=== PATIENT | female | born 1990 | race Caucasian/White ===

== ENCOUNTER → 2017-08-07 09:08 | Outpatient (CLI) | payer OTHER, SELFPAY ==
[2017-08-07 13:00] LABS: Cholesterol 138 mg/dL (200); Glucose 91 mg/dL (74-106); High Density Lipoprotein 41 mg/dL; T4 Free Direct 0.95 ng/dL (0.76-1.46); Triglycerides 130 mg/dL; Very Low Density Lipoprotein 26 mg/dL (5-40)
[2017-08-08 09:39] LABS: Vitamin D,25 Hydroxy 22.4 ng/mL (29.95-100.01)
[2017-08-12 12:21] LABS: HPV Reflexed? NOT INDICATED
== END ==
PROVIDERS: Family Provider Family Medicine; PCP Family Medicine; Visit Provider Obstetrics & Gynecology
DX: E28.2 Polycystic ovarian syndrome (principal); E01.0 Iodine-deficiency related diffuse (endemic) goiter; Z12.4 Encounter for screening for malignant neoplasm of cervix
CPT/HCPCS: 36415; 80061; 82306; 82947; 84439; 88175; G0145

== ENCOUNTER → 2017-08-11 09:52 | Outpatient (CLI) | payer OTHER, SELFPAY ==
--- NOTE | 2017-08-11 09:54 | US_ITS ---
STUDY: THYROID ULTRASOUND REASON FOR EXAM: Female, 27 years old. Thyromegaly. TECHNIQUE: Ultrasound evaluation of the thyroid was performed with real-time and static duke-scale imaging. COMPARISON: Comparison is made with prior examination dated October 21, 2014. FINDINGS: RIGHT LOBE: The right lobe of the thyroid gland measures 4.9 cm x 1.8 cm x 1.9 cm. There is a homogeneous echotexture. There are no demonstrated solid, cystic or complex lesions. LEFT LOBE: The left lobe of the thyroid gland is slightly enlarged and measures 5.1 cm x 1.5 cm by 1.5 cm. There is a homogeneous echotexture. There are no demonstrated solid, cystic or complex lesions. ISTHMUS: The isthmus measures 3.0 mm. The regional lymph nodes are normal. US/Thyroid IMPRESSION: Mildly enlarged left lobe of the thyroid. Electronically Signed: Abhijeet Gauthier MD at 15:31 EDT Tel [phone], Service support ,
== END ==
PROVIDERS: Family Provider Family Medicine; PCP Family Medicine; Visit Provider Obstetrics & Gynecology
DX: E01.0 Iodine-deficiency related diffuse (endemic) goiter (principal)
CPT/HCPCS: 76536

== ENCOUNTER → 2018-09-07 | Outpatient (CLI) | payer OTHER, SELFPAY ==
[2018-09-07 15:18] VITALS: BMI 28.1
[2018-09-07 15:43] LABS: Absolute Lymphocyte Count 3.63 X10^3/ul (0.83-4.51); Absolute Neutrophil Count 4.6 X10^3/uL (2.0-7.7); Basophil# 0.02 X10^3/uL; Basophil% 0.2 % (0-1); Eosinophils% 2.2 % (0-5); Hematocrit 40.2 % (37-47); Hemoglobin 13.5 g/dl (12.0-15.0); Lymphocyte # 3.63 X10^3/ul (4.0); Mean Corp Hgb Conc 33.6 g/gl (32-36); Mean Corpuscular Hgb 28.3 pg (27.0-32.0); Mean Corpuscular Volume 84.3 fL (81-99); Mean Platelet Vol. 11.6 fl (6.2-12.0); Monocyte# 0.61 X10^3/uL; Monocyte% 6.7 % (0-10); Neutrophil # 4.61 X10^3/uL (2.7-7.7); Neutrophil % 50.8 % (47-70); POSITIVE COUNT NO; POSITIVE DIFFERENTIAL NO; POSITIVE MORPHOLOGY NO; Platelet Count 307 K/mm3 (150-450); RBC Distribution Width SD 39.7 fl (35.1-43.9); Red Blood Count 4.77 M/mm3 (4.2-5.4); White Blood Count 9.1 K/mm3 (4.4-11.0)
[2018-09-07 16:09] LABS: Thyroid Stim Hormone (TSH) 1.65 uIU/mL (0.358-3.74)
== END | disposition home or self-care (01) ==
PROVIDERS: Family Provider Family Medicine; PCP Family Medicine; Referring Provider Nurse Practitioner Women's Health; Visit Provider Nurse Practitioner Women's Health
DX: N92.1 Excessive and frequent menstruation with irregular cycle (principal); N94.6 Dysmenorrhea, unspecified
CPT/HCPCS: 36415; 84443; 85025

== ENCOUNTER → 2018-09-15 | Outpatient (CLI) | payer OTHER, SELFPAY ==
[2018-09-07 15:18] VITALS: BMI 28.1
--- NOTE | 2018-09-15 12:54 | US_ITS ---
STUDY: ULTRASOUND OF THE FEMALE PELVIS - COMPLETE REASON FOR EXAM: Female, 28 years old. Heavy bleeding LMP: 09/10/2018 TECHNIQUE: Transabdominal and Transvaginal TECHNICAL QUALITY: Adequate. COMPARISON: None. FINDINGS: The uterus is anteverted and is in a midline position. The uterus measures 9.4 x 6.1 x 2.5 cm. Normal uterine cervix. The endometrium measures 4.1 mm in thickness, and is hyperechoic. There is no demonstrated endometrial mass. There is no demonstrated myometrial mass. I.U.D. - The patient does not have an I.U.D. The right ovary is visualized. The right ovary measures 2.9 x 2.2 x 2.0 cm. There is no right ovarian cyst or ovarian mass. There is no visualized right adnexal mass or complex lesion. There is normal arterial and normal venous vascularity. The left ovary is visualized. The left ovary measures 2.7 x 2.2 x 1.8 cm. There is no left ovarian cyst or ovarian mass. There is no visualized left adnexal mass or complex lesion. There is normal arterial and normal venous vascularity. There is no fluid in the cul-de-sac. The bladder is sonographically normal US/Pelvic (Non ) IMPRESSION: No suspicious sonographic findings Electronically Signed: Cristofer Gomez MD at 16:08 EDT , Service support ,
--- NOTE | 2018-09-15 12:54 | US_ITS ---
STUDY: ULTRASOUND OF THE FEMALE PELVIS - COMPLETE REASON FOR EXAM: Female, 28 years old. Heavy bleeding LMP: 09/10/2018 TECHNIQUE: Transabdominal and Transvaginal TECHNICAL QUALITY: Adequate. COMPARISON: None. FINDINGS: The uterus is anteverted and is in a midline position. The uterus measures 9.4 x 6.1 x 2.5 cm. Normal uterine cervix. The endometrium measures 4.1 mm in thickness, and is hyperechoic. There is no demonstrated endometrial mass. There is no demonstrated myometrial mass. I.U.D. - The patient does not have an I.U.D. The right ovary is visualized. The right ovary measures 2.9 x 2.2 x 2.0 cm. There is no right ovarian cyst or ovarian mass. There is no visualized right adnexal mass or complex lesion. There is normal arterial and normal venous vascularity. The left ovary is visualized. The left ovary measures 2.7 x 2.2 x 1.8 cm. There is no left ovarian cyst or ovarian mass. There is no visualized left adnexal mass or complex lesion. There is normal arterial and normal venous vascularity. There is no fluid in the cul-de-sac. The bladder is sonographically normal US/Transvaginal Non- IMPRESSION: No suspicious sonographic findings Electronically Signed: Cristofer Gomez MD at 16:08 EDT , Service support ,
== END | disposition home or self-care (01) ==
PROVIDERS: Family Provider Family Medicine; PCP Family Medicine; Referring Provider Nurse Practitioner Women's Health; Visit Provider Nurse Practitioner Women's Health
DX: N92.1 Excessive and frequent menstruation with irregular cycle (principal); N94.6 Dysmenorrhea, unspecified
CPT/HCPCS: 76830; 76856; 93976

== ENCOUNTER → 2020-12-07 | Outpatient (CLI) | payer OTHER, SELFPAY ==
[2020-12-07 14:39] VITALS: BMI 29.5
[2020-12-12 05:07] LABS: Chlamydia By Nucleic Acid AMP Negative (Negative)
[2020-12-13 10:47] LABS: Gonococcus By Nucleic Acid AMP Negative (Negative)
[2020-12-13 20:32] LABS: HPV Reflexed? NOT INDICATED
== END | disposition home or self-care (01) ==
LOC: LABSPEC 16:39
PROVIDERS: PCP Family Medicine; Referring Provider Obstetrics & Gynecology; Visit Provider Obstetrics & Gynecology
DX: R30.0 Dysuria (principal); Z11.3 Encounter for screening for infections with a predominantly sexual mode of transmission; Z12.4 Encounter for screening for malignant neoplasm of cervix
CPT/HCPCS: 87086; 87491; 87591; 88175; G0145

== ENCOUNTER → 2020-12-18 12:32 | Outpatient (CLI) | payer OTHER, SELFPAY ==
[2020-12-07 14:39] VITALS: BMI 29.5
--- NOTE | 2020-12-18 12:34 | US_ITS ---
STUDY: ULTRASOUND OF THE FEMALE PELVIS - COMPLETE REASON FOR EXAM: Female, 30 years old. IUD PLACEMENT LMP: 11/14/2020. TECHNIQUE: Transabdominal and Transvaginal TECHNICAL QUALITY: Adequate. COMPARISON: Comparison is made with prior study dated 09/15/2018. FINDINGS: The uterus is anteverted and is tilted to the right side of the pelvis. The uterus measures 8.5 cm x 5.9 cm x 4.2 cm. Normal uterine cervix. The endometrium measures 7 mm in thickness, and is hyperechoic. There is no demonstrated endometrial mass. There is no demonstrated myometrial mass. I.U.D. - The patient does have an I.U.D.. The IUD is in the fundal portion of the endometrium. The right ovary is visualized. The right ovary measures 3 cm x 1.9 cm x 1.9 cm. There is no right ovarian cyst or ovarian mass. There is no visualized right adnexal mass or complex lesion. There is normal arterial and normal venous vascularity. The left ovary is visualized. The left ovary measures 3.4 cm x 2 signed by 3.5 cm. There is no left ovarian cyst or ovarian mass. There is no visualized left adnexal mass or complex lesion. There is normal arterial and normal venous vascularity. There is no fluid in the cul-de-sac. The pre void volume of the bladder was 396 ml. US/Pelvic (Non ) IMPRESSION: The IUD is within the fundal portion of the endometrium. Electronically Signed: Abhijeet Gauthier MD at 12:21 EDT , Service support ,
--- NOTE | 2020-12-18 12:34 | US_ITS ---
STUDY: ULTRASOUND OF THE FEMALE PELVIS - COMPLETE REASON FOR EXAM: Female, 30 years old. IUD PLACEMENT LMP: 11/14/2020. TECHNIQUE: Transabdominal and Transvaginal TECHNICAL QUALITY: Adequate. COMPARISON: Comparison is made with prior study dated 09/15/2018. FINDINGS: The uterus is anteverted and is tilted to the right side of the pelvis. The uterus measures 8.5 cm x 5.9 cm x 4.2 cm. Normal uterine cervix. The endometrium measures 7 mm in thickness, and is hyperechoic. There is no demonstrated endometrial mass. There is no demonstrated myometrial mass. I.U.D. - The patient does have an I.U.D.. The IUD is in the fundal portion of the endometrium. The right ovary is visualized. The right ovary measures 3 cm x 1.9 cm x 1.9 cm. There is no right ovarian cyst or ovarian mass. There is no visualized right adnexal mass or complex lesion. There is normal arterial and normal venous vascularity. The left ovary is visualized. The left ovary measures 3.4 cm x 2 signed by 3.5 cm. There is no left ovarian cyst or ovarian mass. There is no visualized left adnexal mass or complex lesion. There is normal arterial and normal venous vascularity. There is no fluid in the cul-de-sac. The pre void volume of the bladder was 396 ml. US/Transvaginal Non- IMPRESSION: The IUD is within the fundal portion of the endometrium. Electronically Signed: Abhijeet Gauthier MD at 12:21 EDT , Service support ,
== END ==
PROVIDERS: PCP Family Medicine; Referring Provider Obstetrics & Gynecology; Visit Provider Obstetrics & Gynecology
DX: Z30.431 Encounter for routine checking of intrauterine contraceptive device (principal)
CPT/HCPCS: 76830; 76856; 93976

== ENCOUNTER → 2022-11-06 | Outpatient (CLI) | payer OTHER, SELFPAY ==
[2022-11-06 12:45] LABS: Absolute Lymphocyte Count 2.51 X10^3/uL (0.83-4.51); Absolute Neutrophil Count 2.6 X10^3/uL (2.0-7.7); Basophil# 0.03 X10^3/uL; Basophil% 0.5 % (0-1); Eosinophil# 0.13 X10^3/uL; Eosinophils% 2.3 % (0-5); Hematocrit 39.7 % (37-47); Lymphocyte # 2.51 X10^3/ul (0.83-4.51); Lymphocyte % 44.4 % (19-41); Mean Corp Hgb Conc 32.7 g/dL (32-36); Mean Corpuscular Hgb 28.7 pg (27.0-32.0); Mean Corpuscular Volume 87.6 fL (81-99); Mean Platelet Vol. 11.6 fl (6.2-12.0); Monocyte# 0.39 X10^3/uL; Monocyte% 6.9 % (0-10); NRBC Flagged by Analyzer 0 % (0-5); Neutrophil # 2.57 X10^3/uL (2.7-7.7); Neutrophil % 45.5 % (47-70); Platelet Count 354 K/mm3 (150-450); RBC Distribution Width CV 12.4 % (11.6-14.6); RBC Distribution Width SD 39.6 fl (35.1-43.9); Red Blood Count 4.53 M/mm3 (4.2-5.4); White Blood Count 5.7 K/mm3 (4.4-11.0)
[2022-11-06 12:57] LABS: Vitamin B12 445 pg/mL (211-911); Vitamin D,25 Hydroxy 38.8 ng/mL
[2022-11-06 13:03] LABS: AST(SGOT) 18 U/L (15-37); Alanine Aminotransfer ALT/SGPT 56 U/L (13-56); Albumin, Serum 3.5 g/dL (3.2-5.0); Alkaline Phosphatase 68 U/L (45-117); Anion Gap 5 (5-15); BUN 12 mg/dL (7-18); BUN/Creat Ratio 15.1 RATIO (10-20); Calcium,Total 8.4 mg/dL (8.5-10.1); Chloride 108 mmol/L (98-107); Creatinine, Serum 0.79 mg/dL (0.55-1.02); EST Glomerular Filtration Rate 89 mL/min (>60); Est Glom Filt Rate - Afr Amer 108 mL/min (>60); Ferritin 67 ng/mL (8-252); Globulin 3.6 g/dL (2.2-4.2); Glucose 123 mg/dL (74-106); Iron 56 ug/dL (50-170); Potassium 3.7 mmol/L (3.5-5.1); Protein, Total 7.1 g/dL (6.4-8.2); Sodium Level 138 mmol/L (136-145); T4 Free Direct 1.16 ng/dL (0.76-1.46); Thyroid Stim Hormone (TSH) 0.87 uIU/mL (0.358-3.74)
== END | disposition home or self-care (01) ==
LOC: BFHLAB 09:49
PROVIDERS: PCP Nurse Practitioner Family; Referring Provider Nurse Practitioner Family; Visit Provider Nurse Practitioner Family
DX: Z00.00 Encounter for general adult medical examination without abnormal findings (principal); R53.83 Other fatigue
CPT/HCPCS: 36415; 80053; 82306; 82607; 82728; 83540; 84439; 84443; 85025

== ENCOUNTER → 2022-12-25 | Outpatient (CLI) | payer OTHER, SELFPAY ==
[2022-12-25 10:34] LABS: hCG Titer Quant., Serum 5 mIU/mL (1-3)
== END | disposition home or self-care (01) ==
PROVIDERS: PCP Nurse Practitioner Family; Referring Provider Nurse Practitioner Women's Health; Visit Provider Nurse Practitioner Women's Health
DX: N91.2 Amenorrhea, unspecified (principal)
CPT/HCPCS: 36415; 84702

== ENCOUNTER → 2022-12-27 | Outpatient (CLI) | payer OTHER, SELFPAY ==
[2022-12-27 10:07] LABS: hCG Titer Quant., Serum 1 mIU/mL (1-3)
== END | disposition home or self-care (01) ==
LOC: PAVLAB 09:23
PROVIDERS: PCP Family Medicine; Referring Provider Nurse Practitioner Women's Health; Visit Provider Nurse Practitioner Women's Health
DX: N91.2 Amenorrhea, unspecified (principal)
CPT/HCPCS: 36415; 84702

== ENCOUNTER → 2023-02-25 | Outpatient (CLI) | payer OTHER, SELFPAY ==
[2023-02-27 21:07] LABS: Chlamydia By Nucleic Acid AMP Negative (Negative); Gonococcus By Nucleic Acid AMP Negative (Negative)
== END | disposition home or self-care (01) ==
LOC: LABSPEC 16:19
PROVIDERS: PCP Family Medicine; Referring Provider Obstetrics & Gynecology; Visit Provider Obstetrics & Gynecology
DX: O09.90 Supervision of high risk pregnancy, unspecified, unspecified trimester (principal); Z3A.00 Weeks of gestation of pregnancy not specified
CPT/HCPCS: 87086; 87088; 87491; 87591

== ENCOUNTER → 2023-03-10 | Outpatient (CLI) | payer OTHER, SELFPAY ==
[2023-03-10 09:09] LABS: Absolute Lymphocyte Count 2.39 X10^3/uL (0.83-4.51); Absolute Neutrophil Count 5.4 X10^3/uL (2.0-7.7); Basophil# 0.02 X10^3/uL; Basophil% 0.2 % (0-1); Eosinophil# 0.11 X10^3/uL; Eosinophils% 1.3 % (0-5); Hematocrit 37.1 % (37-47); Lymphocyte # 2.39 X10^3/ul (0.83-4.51); Lymphocyte % 28.7 % (19-41); Mean Corp Hgb Conc 32.3 g/dL (32-36); Mean Corpuscular Hgb 28.3 pg (27.0-32.0); Mean Corpuscular Volume 87.5 fL (81-99); Mean Platelet Vol. 11.7 fl (6.2-12.0); Monocyte% 4.8 % (0-10); NRBC Flagged by Analyzer 0 % (0-5); Neutrophil # 5.38 X10^3/uL (2.7-7.7); Neutrophil % 64.5 % (47-70); Platelet Count 249 K/mm3 (150-450); RBC Distribution Width CV 12.8 % (11.6-14.6); RBC Distribution Width SD 40.3 fl (35.1-43.9); Red Blood Count 4.24 M/mm3 (4.2-5.4); White Blood Count 8.3 K/mm3 (4.4-11.0)
[2023-03-10 09:34] LABS: Thyroid Stim Hormone (TSH) 0.78 uIU/mL (0.358-3.74)
[2023-03-10 10:04] LABS: NATERA MAILED SPECIMEN
[2023-03-10 10:34] LABS: HIV - WCH Non-Reactive (Nonreactive); Hepatitis B Surface Antigen Non-Reactive (Nonreactive); Hepatitis C Antibody Non-Reactive (Nonreactive); Rubella IgG Reactive (Nonreactive); Syphilis Antibodies Non-reactive
[2023-03-11 04:07] LABS: Thyroid Peroxidase AB 15 IU/mL (0-34)
== END | disposition home or self-care (01) ==
PROVIDERS: PCP Family Medicine; Referring Provider Obstetrics & Gynecology; Visit Provider Obstetrics & Gynecology
DX: O99.210 Obesity complicating pregnancy, unspecified trimester (principal); E01.0 Iodine-deficiency related diffuse (endemic) goiter; Z3A.00 Weeks of gestation of pregnancy not specified; O99.280 Endocrine, nutritional and metabolic diseases complicating pregnancy, unspecified trimester
CPT/HCPCS: 36415; 83036; 84439; 84443; 85025; 86376; 86703; 86762; 86780; 86803; 86850; 86900; 86901; 87340

== ENCOUNTER → 2023-07-10 | Outpatient (CLI) | payer OTHER, SELFPAY ==
[2023-07-10 13:55] LABS: Absolute Lymphocyte Count 2.34 X10^3/uL (0.83-4.51); Absolute Neutrophil Count 8.5 X10^3/uL (2.0-7.7); Basophil# 0.04 X10^3/uL; Basophil% 0.3 % (0-1); Eosinophil# 0.09 X10^3/uL; Eosinophils% 0.8 % (0-5); Hematocrit 30.1 % (37-47); Hemoglobin 9.7 g/dL (12.0-15.0); Lymphocyte # 2.34 X10^3/ul (0.83-4.51); Lymphocyte % 19.8 % (19-41); Mean Corp Hgb Conc 32.2 g/dL (32-36); Mean Corpuscular Hgb 28.4 pg (27.0-32.0); Mean Corpuscular Volume 88.3 fL (81-99); Mean Platelet Vol. 11.7 fl (6.2-12.0); Monocyte# 0.75 X10^3/uL; Monocyte% 6.4 % (0-10); NRBC Flagged by Analyzer 0 % (0-5); Neutrophil # 8.49 X10^3/uL (2.7-7.7); Neutrophil % 71.9 % (47-70); Platelet Count 228 K/mm3 (150-450); RBC Distribution Width CV 13.8 % (11.6-14.6); RBC Distribution Width SD 44.1 fl (35.1-43.9); Red Blood Count 3.41 M/mm3 (4.2-5.4); White Blood Count 11.8 K/mm3 (4.4-11.0)
[2023-07-10 14:04] LABS: Glucose Challenge Gest 1H 50g 117 mg/dL (70-140)
[2023-07-10 14:35] LABS: HIV - WCH Non-Reactive (Nonreactive); Syphilis Antibodies Non-reactive
[2023-07-10 15:04] LABS: Amphetamine Urine VISTA NEGATIVE (<1000 ng/mL); Barbiturate Urine VISTA NEGATIVE (< 200 ng/mL); Benzodiazepine Urine VISTA NEGATIVE (< 200 ng/mL); Cocaine Urine VISTA NEGATIVE (< 300 ng/mL); Ecstacy Urine VISTA NEGATIVE (< 500 ng/mL); Methadone Urine VISTA NEGATIVE (< 300 ng/mL); PCP Urine VISTA NEGATIVE (< 25 ng/mL); THC Urine VISTA NEGATIVE (< 50 ng/mL); Vista UDS pH Range 7
--- OUTSIDE RECORDS SUMMARY | 2023-07-10 21:04 | XMS RPT_ITS | CCD ---
Author Name Unknown Address [facility] [employer] [address] [place] [id number] Organization [facility] Care Team Providers Care Wheel Worker Name Role Phone RAMONA MELÉNDEZSho Berkowitz Primary Care Unavailable YAMINI BARNETT Attending Unavaila RACHEAL Goldberg Referring Unavailab ISRRAEL Casiano Primary Care Unavailable SONALI JUSTIN Attending Unavailable Allergies Allergy Classification Reported Allergen(s) Allergy Type Date of Onset Reaction(s) Facility (1 source) Escitalopram; Translations: [ESCITALOPRAM] Drug Allergy 12-26-2022 [facility] Other [facility] [place] [facility] Problems Problem Classification Problem Date Documented Da te Episodic/Chronic Other female genital disorders (1 source) Abnormal uterine and vaginal bleeding, unspecified; Translations: [Vaginal bleeding] Onset: 12-26-2022 Chronic Results Test Name Value Interpretation Reference Range Facil ity Encounters Encounter Date Encounter Type Care Provider Facility Start: 05-13-2023 End: 05-13-2023 ambulatory RACHEAL DOMINGUEZ [facility] Start: 12-26-2022 End: 12-26-2022 Emergency department patient visit ISRRAEL MELÉNDEZ Facility:[facility] Payers Date Payer Category Payer Unknown [id number] 1990 Unknown [id number] Summary Purpose Family History No Family History Records FoundNo Family History Records Found Advance Directives No Advanced Directives Records FoundNo Advanced Directives Records Found Additional Source Comments INFORMATION SOURCE (unrecogn ized section and content) DATE CREATED AUTHOR AUTHOR'S ORGANIZ ATION 05/14/2023 [facility] FOR RECORDS PERTAINING TO PATIENTS WHO ARE OR HAVE BEEN ENROLLED IN A CHEMICAL DEPENDENCY/SUBSTANCEABUSE PROGRAM, SOME INFORMATION MAY BE OMITTED. This clinical summary was aggregated from multiple sources. Caution should be exercised in using it in the provision of clinical care. This summary normalizes information from multiple sources, and as a consequence, information in this document may materially change the coding, format and clinical context of patient data. In addition, data may be omitted in some cases. CLINICAL DECISIONS SHOULD BE BASED ON THE PRIMARY CLINICAL RECORDS. [facility] [employer], [facility]. provides no warranty or guarantee of the accuracy or completeness of information in this document.
== END | disposition home or self-care (01) ==
LOC: PAVLAB 13:26
PROVIDERS: PCP Family Medicine; Referring Provider Obstetrics & Gynecology; Visit Provider Obstetrics & Gynecology
DX: O09.90 Supervision of high risk pregnancy, unspecified, unspecified trimester (principal); Z13.1 Encounter for screening for diabetes mellitus; Z3A.00 Weeks of gestation of pregnancy not specified
CPT/HCPCS: 36415; 80307; 82950; 85025; 86703; 86780

== ENCOUNTER → 2023-08-07 | Outpatient (CLI) | payer OTHER, SELFPAY ==
[2023-08-07 09:56] LABS: Absolute Lymphocyte Count 2.01 X10^3/uL (0.83-4.51); Absolute Neutrophil Count 8.2 X10^3/uL (2.0-7.7); Basophil# 0.05 X10^3/uL; Basophil% 0.4 % (0-1); Eosinophil# 0.13 X10^3/uL; Eosinophils% 1.2 % (0-5); Hematocrit 31.4 % (37-47); Lymphocyte # 2.01 X10^3/ul (0.83-4.51); Mean Corp Hgb Conc 31.8 g/dL (32-36); Mean Corpuscular Hgb 28.4 pg (27.0-32.0); Mean Corpuscular Volume 89.2 fL (81-99); Mean Platelet Vol. 11.7 fl (6.2-12.0); Monocyte# 0.69 X10^3/uL; Monocyte% 6.2 % (0-10); NRBC Flagged by Analyzer 0 % (0-5); Neutrophil # 8.22 X10^3/uL (2.7-7.7); Neutrophil % 73.5 % (47-70); Platelet Count 214 K/mm3 (150-450); RBC Distribution Width CV 13.8 % (11.6-14.6); Red Blood Count 3.52 M/mm3 (4.2-5.4); White Blood Count 11.2 K/mm3 (4.4-11.0)
[2023-08-07 10:25] LABS: Vitamin B12 354 pg/mL (211-911)
[2023-08-07 11:06] LABS: Ferritin 4 ng/mL (8-252); Iron Binding Capacity,Total 526 ug/dL (250-450)
== END | disposition home or self-care (01) ==
PROVIDERS: PCP Family Medicine; Referring Provider Nurse Practitioner Family; Visit Provider Nurse Practitioner Family
DX: D64.9 Anemia, unspecified (principal)
CPT/HCPCS: 36415; 82607; 82728; 82746; 83550; 85025

== ENCOUNTER → 2023-09-02 | Outpatient (CLI) | payer OTHER, SELFPAY ==
[2023-09-02 13:25] LABS: Absolute Lymphocyte Count 1.98 X10^3/uL (0.83-4.51); Absolute Neutrophil Count 6.9 X10^3/uL (2.0-7.7); Basophil# 0.03 X10^3/uL; Basophil% 0.3 % (0-1); Eosinophil# 0.07 X10^3/uL; Eosinophils% 0.7 % (0-5); Hematocrit 29.8 % (37-47); Hemoglobin 9.7 g/dL (12.0-15.0); Lymphocyte # 1.98 X10^3/ul (0.83-4.51); Lymphocyte % 20.2 % (19-41); Mean Corp Hgb Conc 32.6 g/dL (32-36); Mean Corpuscular Hgb 28.8 pg (27.0-32.0); Mean Corpuscular Volume 88.4 fL (81-99); Mean Platelet Vol. 12.5 fl (6.2-12.0); Monocyte# 0.78 X10^3/uL; Monocyte% 7.9 % (0-10); NRBC Flagged by Analyzer 0 % (0-5); Neutrophil # 6.89 X10^3/uL (2.7-7.7); Neutrophil % 70.2 % (47-70); Platelet Count 217 K/mm3 (150-450); RBC Distribution Width CV 13.7 % (11.6-14.6); RBC Distribution Width SD 44.1 fl (35.1-43.9); Red Blood Count 3.37 M/mm3 (4.2-5.4); White Blood Count 9.8 K/mm3 (4.4-11.0)
[2023-09-02 13:43] LABS: Protein, Urine (Random) 6.7 mg/dL (<11.9); Protein:Creat Ratio 191 mg/g CRE (0-200)
[2023-09-02 13:57] LABS: ALB/GLOB Ratio 0.7 RATIO (0.9-2.4); AST(SGOT) 14 U/L (15-37); Alanine Aminotransfer ALT/SGPT 17 U/L (13-56); Albumin, Serum 2.6 g/dL (3.2-5.0); Alkaline Phosphatase 122 U/L (45-117); Anion Gap 5 (5-15); BUN 8 mg/dL (7-18); BUN/Creat Ratio 14.6 RATIO (10-20); Chloride 107 mmol/L (98-107); Creatinine, Serum 0.55 mg/dL (0.55-1.02); EST Glomerular Filtration Rate 137 mL/min (>60); Est Glom Filt Rate - Afr Amer 165 mL/min (>60); Globulin 3.8 g/dL (2.2-4.2); Glucose 66 mg/dL (74-106); Protein, Total 6.4 g/dL (6.4-8.2); Sodium Level 136 mmol/L (136-145)
[2023-09-02 14:32] LABS: Protein, Urine (Random) 10.8 mg/dL (<11.9); Protein:Creat Ratio 167 mg/g CRE (0-200)
== END | disposition home or self-care (01) ==
PROVIDERS: PCP Family Medicine; Referring Provider Obstetrics & Gynecology; Visit Provider Obstetrics & Gynecology
DX: R51.9 Headache, unspecified (principal)
CPT/HCPCS: 36415; 80053; 82570; 84156; 85025

== ENCOUNTER → 2023-09-08 | Outpatient (CLI) | payer OTHER, SELFPAY ==
[2023-09-08 12:33] LABS: Group B Strep DNA By PCR Negative (Negative); Internal Control PASS; Probe Check PASS; Specimen Processing Control PASS
== END | disposition home or self-care (01) ==
LOC: LABSPEC 10:49
PROVIDERS: PCP Family Medicine; Referring Provider Advanced Practice Midwife; Visit Provider Advanced Practice Midwife
DX: Z34.90 Encounter for supervision of normal pregnancy, unspecified, unspecified trimester (principal)
CPT/HCPCS: 87081; 87653

== ENCOUNTER → 2023-09-08 | Outpatient (CLI) | payer OTHER, SELFPAY ==
[2023-09-08 11:12] LABS: Ferritin 8 ng/mL (8-252); Iron 212 ug/dL (50-170); Iron Binding Capacity,Total 574 ug/dL (250-450); PERCENT IRON SATURATION 36.9 % (15.0-55.0)
== END | disposition home or self-care (01) ==
LOC: PAVLAB 09:10
PROVIDERS: PCP Family Medicine; Referring Provider Nurse Practitioner Women's Health; Visit Provider Nurse Practitioner Women's Health
DX: O99.019 Anemia complicating pregnancy, unspecified trimester (principal); Z3A.00 Weeks of gestation of pregnancy not specified
CPT/HCPCS: 36415; 82728; 83540; 83550

== ENCOUNTER 2023-09-15 17:49 | Inpatient (IN) | payer OTHER, SELFPAY ==
[2023-09-15] VITALS (28 sets, daily range): BP systolic 90–135; BP diastolic 53–90; PULSE 82–126; RESP 16–18; TEMP 36.6; O2SAT 78–100; BMI 35.9
[2023-09-15 09:55] LABS: ROM Internal Control Test YES-OK TO RESULT pt. (Internal QC); ROM Patient Test Negative (Negative); Record Kit Lot#, ROM+ K1866
--- NOTE | 2023-09-15 18:04 | HP.PCM.OB_ITS ---
HPI - General General Date of Admission: 09/15/23 HPI Narrative ROBERT STUART, is a 33 F who presents IAL now 5 cm regular ctx some vb no lof good fm Maternal Data Information BRAD Calculator Estimated Delivery Date Method Current WG Current Estimate 10/01/23 LMP (Certain) 37w 5d Other Estimates 09/30/23 Ultrasound #1 37w 6d PFSH PFSH Medical History Anxiety IBS (irritable bowel syndrome) PCOS (polycystic ovarian syndrome) Home Medications ?Medication ?Instructions ?Recorded ?Last Taken ?Type multivit-min no.71-iron fum 28 cap PO 02/11/23 Unknown History mg-folate no.1 1 mg-dha 300 mg capsule (PNV-[place]) ondansetron HCl 4 mg tablet 4 mg PO Q8H 30 days #60 tabs 02/25/23 Unknown Rx famotidine 20 mg tablet (Pepcid) 20 mg PO DAILY #30 tabs 08/07/23 Unknown Rx Allergy/AdvReac Type Severity Reaction Status Date / Time escitalopram (From Lexapro) Allergy Intermediate numbness/tingling Verified 09/08/23 09:45 in hands Family History Mother Hypertension Father Hypertension Sister Hypertension Ovarian cancer Surgical History H/O laparoscopy S/P appendectomy S/P right knee surgery [place] teeth extracted Social History adopted: No household members: spouse and children number of children: 2 current occupational status: employed current occupation: [employer]- [employer] current occupational exposures/hazards: No pets and animals: Yes (Not managing litterbox) pets and animals: cat(s) and dog(s) history of recent travel: No sexually active: Yes Smoking Status: Former smoker alcohol intake: never substance use type: does not use well-balanced diet: daily or most days caffeine: Yes Type: tea Number of servings: 1 eating out: rarely or never during the past year weight has: remained stable what type of physical activity do you participate in: walking frequency: 5-6 times per week steve/mormonism: None seatbelt use: always do you feel safe at home: Yes additional social history: [employer] Patient works at [employer] @ [employer] History 3 Elective abortions Hx Para 2 Spontaneous abortions Hx # Term Pregnancies Ectopic pregnancies Hx # Pregnancies Multiple births # of living children 2 Past Pregnancies Del. Date Name GA/Weeks Outcome Route Bth Weight Infant Gen Labor Lgth Anesthesia Del Locatn Provider FO 04/22/12 [facility] live - full term [facility] 10/11/15 [facility] live - full term [facility] Dr[facility] Durán Visit Details Expected Delivery Route/Plan Labor Preferences- CB/BF classes: [] labor support person: [] labor intervention preferences: [] pain management options preferred: [] cut cord/dad catch: [] : [] PP control planned: [] discussed possible routes of delivery and associated risks: [] special requests: [] Plans Covid status: [] Flu vaccine: given Tdap vaccine: declined Rhogam: [na LARC form signed: declined movement and labor precautions reviewed. Problem list reviewed and updated with the most current plan of care details and appropriate orders placed. Relevant counseling for the gestational age provided. Continue routine care and follow up unless otherwise noted in visit notes/problem list details OB Flowsheet Initial Weight: Not Recorded Date -?-?-?-?-?-?-?-?-?-?-?-?- EGA Weight BP Urine Prot -?-?-?-?-?-?-?-?-?-?-?-?- Glucose FHR FuHt Pres Dilation -?-?-?-?-?-?-?-?-?-?-?-?- Effaced St Visit Note 02/25/23 -?-?-?-?-?-?-?-?-?-?-?-?- 8w 6d 195 lb 117/79 -?-?-?-?-?-?-?-?-?-?-?-?- 189 -?-?-?-?-?-?-?-?-?-?-?-?- JV- CRL consiste nt with LMP. desires nipt. unsure about carrier testing. 03/26/23 -?-?-?-?-?-?-?-?-?-?-?-?- 13w 0d 198 lb 108/69 Negative -?-?-?-?-?-?-?-?-?-?-?-?- Negative 154 -?-?-?-?-?-?-?-?-?-?-?-?- JV- normal NIPT, anatomy scan ordered. no lof, vaginal bleeding, or cramping. 04/22/23 -?-?-?-?-?-?-?-?-?-?-?-?- 16w 6d 196 lb 111/71 Negative -?-?-?-?-?-?-?-?-?-?-?-?- Negative 148 -?-?-?-?-?-?-?-?-?-?-?-?- MH-No VB. Nausea improving. Denies concerns 05/20/23 -?-?-?-?-?-?-?-?-?-?-?-?- 20w 6d 204 lb 119/79 Negative -?-?-?-?-?-?-?-?-?-?-?-?- Negative 145 20 -?-?-?-?-?-?-?-?-?-?-?-?- KW- no vb/ctx. g ood fm. having increased vaginal pressure. closed on exam 06/19/23 -?-?-?-?-?-?-?-?--?-?-?-?- 25w 1d 208 lb 106/75 Negative -?-?-?-?-?-?-?-?-?-?-?-?- Negative 140 25 -?-?-?-?-?-?-?-?-?-?-?-?- Sm- no vb lof go od fm no regular ctx 07/10/23 -?-?-?-?-?-?-?-?-?-?-?-?- 28w 1d 215 lb 8 oz 112/77 -?-?-?-?-?-?-?-?-?-?-?-?- 145 28 -?-?-?-?-?-?-?-?-?-?-?-?- kw-no vb/lof/ctx . good fm. 28 week labs today pending. to start PO iron. kw-no vb/lof/ctx. good fm. 2 8 week labs today. passed 1 hour gct. to start PO iron. 07/24/23 -?-?-?-?-?-?-?-?--?-?-?-?- 30w 1d 220 lb 8 oz 112/72 Nega tive -?-?-?-?-?-?-?-?-?-?-?-?- Negative 140 30 Cephalic -?-?-?-?-?-?-?-?-?-?-?-?- Sm- no vb lof go od fm no regular ctx 08/07/23 -?-?-?-?-?-?-?-?-?-?-?-?- 32w 1d 220 lb 111/78 Negative -?-?-?-?-?-?-?-?-?-?-?-?- Negative 140 33 Cephalic -?-?-?-?-?-?-?-?-?-?-?-?- Sm- no vb lof go od fm no regularctx start pepcid for nausea and gerd 08/21/23 -?-?-?-?-?-?-?-?-?-?-?-?- 34w 1d 225 lb 111/74 Negative -?-?-?-?-?-?-?-?-?-?-?-?- Negative 145 35 Cephalic -?-?-?-?-?-?-?-?-?-?-?-?- JV- no lof, vagi nal bleeding, or dec fm. plan gbs next visit. 09/02/23 -?-?-?-?-?-?-?-?-?-?-?-?- 35w 6d 224 lb 4 oz 117/71 Nega tive -?-?-?-?-?-?-?-?-?-?-?-?- Negative 140 35 Cephalic -?-?-?-?-?-?-?-?-?-?-?-?- JV- has a headac he today and states some visual changes. bp is normal. sending for [facility] lab work up. 09/08/23 -?-?-?-?-?-?-?-?-?-?-?-?- 36w 5d 226 lb 6 oz 117/80 Nega tive -?-?-?-?-?-?-?-?-?-?-?-?- Negative 145 37 Cephalic 2 .5 -?-?-?-?-?-?-?-?-?-?-?-?- 70 -2 Kw- no vb/ lof/ctx. good fm. labs today NST FHR Rate Baby A Baseline: 140 Variability:: Moderate Accelerations:: 15 x 15 Decelerations:: None NST Reactive:: Yes FHR Category:: Category I Uterine Activity:: q3-5 ROS Constitutional Constitutional: Reports systems reviewed and no addt'l complaints, except as documented ENT HEENT: Reports systems reviewed and no addt'l complaints, except as documented Cardiovascular Cardiovascular: Reports systems reviewed and no addt'l complaints, except as documented Respiratory/Chest Respiratory/Chest: Reports systems reviewed and no addt'l complaints, except as documented Gastrointestinal Gastrointestinal: Reports systems reviewed and no addt'l complaints, except as documented and nausea; Denies abdominal pain Genitourinary Genitourinary: Reports systems reviewed and no addt'l complaints, except as documented, contractions Details: present and frequency (regular ) and movement Details: present Musculoskeletal Musculoskeletal: Reports systems reviewed and no addt'l complaints, except as documented Integumentary Integumentary: Reports as per HPI Neurologic Neurologic: Reports systems reviewed and no addt'l complaints, except as documented Endocrine Endocrinology: Reports systems reviewed and no addt'l complaints, except as documented Vital Signs Vital Signs Vital Signs: 09/15/23 09:17 09/15/23 09:17 Pulse Rate 91 Blood Pressure 119/90 H BP Systolic 119 BP Diastolic 90 Weight Weight: 229 lb Body Mass Index (BMI) 35.9 Physical Exam Const alert, oriented x3 and healthy appearing Constitutional Narrative: uncomfortable with contractions HEENT normocephalic and moist oral mucous membranes Head and Scalp: atraumatic Neck full ROM, no lymphadenopathy, supple and thyroid normal General: trachea midline Thyroid: thyroid normal Lymph Lymphatic: no lymphadenopathy noted Chest inspection of chest normal Resp normal respiratory effort Cardio regular rate GI normal to inspection, nondistended, normoactive bowel sounds, soft to palpation and non-tender Inspection: gravid external exam normal Bimanual Exam - Vag & Uterus: uterus non-tender Manual OB Exam: estimated gestational size appropriate, presentation cephalic, dilated, effaced and station Extremity normal to inspection General Extremity: Negative for edema Skin no rashes or lesions noted Neuro deep tendon reflexes 2+ bilaterally Motor Exam: strength 5/5 throughout and clonus absent Psych mental status grossly normal Labs Labs Labs: Blood Type AB POSITIVE Antibody Screen NEGATIVE Hct 29.8 % (37-47) L Hgb 9.7 g/dL (12.0-15.0) L Syphilis Total Ab Non-reactive VZV IgG Antibody 1.13 index (.-) Rubella IgG Antibody Reactive (Nonreactive) Hep Bs Antigen Non-Reactive (Nonreactive) Hepatitis C Antibody Non-Reactive (Nonreactive) Chlamydia DNA (NIC) Negative (Negative) N.gonorrhoeae DNA (NIC) Negative (Negative) HIV 1&2 Antibody Non-Reactive (Nonreactive) Glucose 1 Hr 50 gm 117 mg/dL (70-140) Gest Glucose Tolerance MG/DL Group B Strep DNA Negative (Negative) Rhogam given: No Miscellaneous Test Assessment & Plan (1) Anemia: COMMENT: OTC FE daily, recheck Fe studies in 4 weeks (2) Obesity affecting : QUALIFIERS: Trimester: second trimester Obesity type affecting : unspecified obesity Qualified Code(s): O99.212 - Obesity complicating , second trimester COMMENT: HgbA1c at NOB (3) Depression: QUALIFIERS: Depression Type: unspecified Qualified Code(s): F32.A - Depression, unspecified (4) Supervision of high risk , antepartum: COMMENT: PRR , BRAD 10/01/23,girl, PC Elaine Ryder, Balta (5) : QUALIFIERS: Weeks of gestation: 36 weeks Qualified Code(s): Z3A.36 - 36 weeks gestation of COMMENT: GBS neg, nl anatomy, NIPT low risk, discussed carrier testing, nl GCT (6) Family history of ovarian cancer: COMMENT: sister incidental finding. had urgent hysterectomy oophorectomy. (7) Active labor at term: PLAN: Plan admit IAL exp management
[2023-09-15 19:21] LABS: Absolute Lymphocyte Count 2.37 X10^3/uL (0.83-4.51); Absolute Neutrophil Count 9.1 X10^3/uL (2.0-7.7); Basophil# 0.02 X10^3/uL; Basophil% 0.2 % (0-1); Eosinophil# 0.05 X10^3/uL; Eosinophils% 0.4 % (0-5); Hematocrit 32.5 % (37-47); Hemoglobin 10.3 g/dL (12.0-15.0); Lymphocyte # 2.37 X10^3/ul (0.83-4.51); Lymphocyte % 19.3 % (19-41); Mean Corp Hgb Conc 31.7 g/dL (32-36); Mean Corpuscular Hgb 28.6 pg (27.0-32.0); Mean Corpuscular Volume 90.3 fL (81-99); Monocyte# 0.63 X10^3/uL; Monocyte% 5.1 % (0-10); NRBC Flagged by Analyzer 0 % (0-5); Neutrophil # 9.14 X10^3/uL (2.7-7.7); Neutrophil % 74.3 % (47-70); Platelet Count 211 K/mm3 (150-450); RBC Distribution Width CV 14.8 % (11.6-14.6); RBC Distribution Width SD 47.8 fl (35.1-43.9); White Blood Count 12.3 K/mm3 (4.4-11.0)
[2023-09-15] MEDS: Lactated Ringers 1,000 ML 50 ML IV (19:57)
[2023-09-15 20:07] LABS: Syphilis Antibodies Non-reactive
[2023-09-15] MEDS: LACTATED RINGERS 500 ML 999 ML IV ×2 (20:25→21:38)
[2023-09-15] MEDS: Acetaminophen 500 MG Tablet PO (21:04)
[2023-09-15] MEDS: fentaNYL-bupivacaine (epidural) 100 ML BAG EPIDURAL (21:32)
[2023-09-15] MEDS: Ondansetron 4 MG/2 ML Vial IV (21:42)
[2023-09-15] MEDS: 0.9% Saline Lock 10 ML Syringe IV (21:44)
[2023-09-16] VITALS (29 sets, daily range): BP systolic 93–122; BP diastolic 51–75; PULSE 76–113; RESP 16–18; TEMP 36.2–38; O2SAT 97–100
[2023-09-16] MEDS: 0.9% Saline Lock 10 ML Syringe IV ×2 (00:38→03:25)
[2023-09-16] MEDS: LACTATED RINGERS 500 ML 999 ML IV ×2 (00:56→03:51)
[2023-09-16] MEDS: Oxytocin 15 Units/NS 250ml 15 UNITS/250 ML IV.SOLN 2 UNITS IV (01:01)
[2023-09-16] MEDS: fentaNYL-bupivacaine (epidural) 100 ML BAG EPIDURAL (02:08)
[2023-09-16] MEDS: Lactated Ringers 1,000 ML 200 ML IV (02:48)
[2023-09-16] MEDS: Ondansetron 4 MG/2 ML Vial IV (03:25)
[2023-09-16] MEDS: Mag Hydrox/Al Hydrox/Simeth 30 ML UDC PO (04:57)
[2023-09-16] MEDS: Oxytocin 15 Units/NS 250ml 15 UNITS/250 ML IV.SOLN 83 UNITS IV (07:25)
--- NOTE | 2023-09-16 08:10 | EX.PCM.OBRPT ---
Assessment & Plan (1) Supervision of high risk , antepartum: COMMENT: PRR , BRAD 10/01/23,girl, PC Elaine Ryder, Balta (2) : QUALIFIERS: Weeks of gestation: 36 weeks Qualified Code(s): Z3A.36 - 36 weeks gestation of COMMENT: GBS neg, nl anatomy, NIPT low risk, discussed carrier testing, nl GCT (3) Family history of ovarian cancer: COMMENT: sister incidental finding. had urgent hysterectomy oophorectomy. (4) Vaginal delivery: COMMENT: SM IAL jignesh 38 Maternal Data Information BRAD Calculator Estimated Delivery Date Method Current WG Current Estimate 10/01/23 LMP (Certain) 37w 6d Other Estimates 09/30/23 Ultrasound #1 38w 0d Vaginal Delivery Operative Information Date of Procedure: 09/16/23 Pre-Operative Diagnosis: see a/p diagnoses Post-Operative Diagnosis: same Surgery / Procedure Performed: Spontaneous Vaginal Delivery Type of Anesthesia: Epidural Special Medications: none Estimated Blood Loss: 200 Fluids Replaced: crystalloid Findings Description of Procedure: Patient began pushing and delivered the head in the lop presentation. The head was delivered atraumatically. The anterior and posterior shoulders delivered without complication followed by the rest of the infant and the infant was placed on the maternal abdomen. Delayed cord clamping was employed for approximately 60 seconds. Cord was clamped and cut and gentle traction was applied to the cord and the placenta delivered spontaneously immediately following it was noted to be intact with three-vessel cord. The perineum and vagina were inspected and noted to have no laceration. EBL was 200 cc. Patient and infant tolerated delivery well. Amniotic Fluid Description: Clear Placental Delivery Description: Spontaneous Placenta Disposition: [facility] Cord Vessel Description: 3 Vessels Cord Entanglement: None Delayed Cord Clamping: Yes Post Vaginal Delivery Medications Given After Delivery: IV Pitocin Episiotomy Description: None Complication Complications: None Procedures Urinary/Genital [id number]: [id number] Vaginal Delivery [facility]
--- NOTE | 2023-09-16 08:11 | DCINST_ITS ---
Discharge Instructions Diet Discharge Diet: No restrictions Activity Discharge Activity: Return to Normal Activity, May Not Drive (while taking narcotic pain medications.) and May Shower May resume sexual activity in: 4-6 weeks Dressing / Incision Call your doctor if your incision/area has: Continuous Slow Oozing, Sudden Increased Bleeding, Increased Pain/ Swelling, Increased Redness and Foul Smelling Discharge Follow Up Care Please Follow Up With: Meghan Hernandez MD When: Call [phone] to make an appointment with your doctor in 6 weeks. If you had elevated blood pressure or 4th degree laceration, you will need to be seen in 2 weeks. Test Results: Test results from this visit will be discussed in further detail at your follow- up appointment, if applicable. Discharge Plan Admission Admit Date/Time: 09/15/23 17:49 Attending Provider: Meghan Hernandez Primary Care Provider: Consuelo Overton Discharge Orders/Prescriptions Prescriptions: No Action PNV-[place] 28-1-300 mg capsule 1 cap PO DAILY famotidine [Pepcid] 20 mg tablet 20 mg PO DAILY Qty: 30 6RF ferrous sulfate [Feosol] 325 mg (65 mg iron) tablet 325 mg PO BID Referrals / Follow Up: Consuelo Overton DO [Primary Care Provider] - Disposition Disposition (needs filled in before D/C Order can be placed): Home, Self Care
[2023-09-16] MEDS: Naproxen 500 MG Tablet PO ×2 (11:11→18:40)
[2023-09-17 03:58] VITALS: BP 116/71; PULSE 71
[2023-09-17 04:00] VITALS: BP 116/71; PULSE 71; RESP 16; TEMP 36.2
[2023-09-17] MEDS: Naproxen 500 MG Tablet PO (04:04)
[2023-09-17 08:04] VITALS: PULSE 72; O2SAT 99
[2023-09-17 08:05] VITALS: BP 112/78; PULSE 72; PULSE 80; RESP 16; TEMP 36.3; O2SAT 99
--- NOTE | 2023-09-17 08:12 | PCM.PN.OB ---
Subjective Subjective Patient doing well without complaints. Tolerating PO. Ambulating and voiding without difficulty. Feeding well. Denies chest pain, shortness of breath, calf pain/swelling, fevers, chills, lightheadedness. Objective Data Objective Data Vital Signs: Vital Signs Temp Pulse Resp BP Pulse Ox O2 Del Method 97.4 F L 80 16 112/78 99 Room Air 09/17/23 08:05 09/17/23 08:05 09/17/23 08:05 09/17/23 08:05 09/17/23 08:05 09/17/23 08:05 Oxygen Delivery Method Room Air Weight: 229 lb Body Mass Index (BMI) 35.9 Intake & Output: Intake and Output for Last 24 Hours 09/15/23 09/16/23 09/17/23 23:59 23:59 23:59 Intake Total 1082.5 / 1082.5 3170.50 / 3170.50 Output Total 50 / 50 980 / 980 Balance 1032.5 / 1032.5 2190.50 / 2190.50 Lab / Micro Data 09/15/23 19:05 Physical Exam Const alert and oriented x3 HEENT normocephalic Eyes PERRL Neck full ROM Resp normal respiratory effort GI soft to palpation GI Narrative: FF below U Assessment & Plan (1) Vaginal delivery: COMMENT: IAL jignesh 38 (2) Anxiety: COMMENT: In the past has been on topamax and celexa PLAN: Plan s/p PPD # 1 1. routine post delivery care 2. breast feeding- support given 3. rh positive 4. rubella immune 5. plans home today.
[2023-09-17] MEDS: Acetaminophen 500 MG Tablet PO (12:18)
--- NOTE | 2023-09-17 13:07 | CASEMGMT ---
Social Work Assessment Labor and Delivery Unit Patient Address: [address] [place] [address] Phone number: [phone] Date of Referral: 09/16/23 Time of Referral:? 174 Referred By: Meghan Hernandez Date of Intervention: ??09/17/23 Time of Intervention:? 1100 Reason for Referral:? other Sw completed chart review and acknowledges social work consult. Sw presented to bedside and introduced self to mother of baby (VALENTINA James). Sw explained reason for sw involvement and completed psychosocial assessment. History obtained from: medical records, MOB Household composition: Currently residing in the home is MARCELINO, KERI, their two older daughters (Bran- 11 y/o, Elaine- 7 y/o), and baby when ready for discharge. MARCELINO denies any issues with current housing. Patient's parent/guardian status:? ?MARCELINO and KERI are , baby is their third baby together. No reports of domestic violence or intimate partner violence. Medical History: ?MARCELINO is 33 year old female who is 3, para 2- now 3 after delivery of . MARCELINO received routine care during with [facility]. MARCELINO presented to hospital on 09/15/23 and delivered baby on 09/16/23 via vaginal delivery. Baby girl, named Joshua Lewis, was born weighing 7lb 5oz with apgars of 8 and 9 at one and five minutes of life, respectfully. MARCELINO states that she is breast feeding and it is going okay. Baby will be followed by Dr. Garcia for pediatrics. Educational Status:?MARCELINO completed high school and has a nursing attendant degree. No concerns with reading, learning or comprehension. Financial Status: MARCELINO and KERI are both gainfully employed outside of the home. 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 KERI is a track mechanic. MARCELINO is able to take 12 weeks off of work Infant Supplies:?? Parents have obtained all necessary baby supplies, including: car seat, safe sleep space, clothes, diapers and wipes. MARCELINO states that she has two breast pumps for home. Childcare/Caregiver(s):? MARCELINO will be the primary caregiver to baby along with FOB when he is not at work. Parents have childcare arranged for when both parents have returned to work. Transportation:?? Both parents have their drivers license and reliable means of transportation. No barriers at this time. Programs/Agencies Involved: ???Family is not connected to any community agencies that provide financial assistance at this time. Children Services/Legal Issues:???No history of children services involvement, no issues or concerns warranting referral to be made at this time. Behavioral Health Issues: ??Mental Health History:??MARCELINO has history of anxiety. MOB denies any medication to help with symptoms. MOB reports that she did not experience any baby blues or symptoms following the delivery of her other two babies. MOB reports that KERI does not have a mental health history. ? Substance Use History:?MOB denies substance use prior to or during . ? Family History:???MOB denies family history of addiction/ substance use or significant mental health diagnoses. ?? Drug Screens: ??No urine screens observed during chart review. Family/Social Stressors:? MOB denies any issues or concerns at this time. Support Systems: MOB reports that KERI, her mom and both sets of grandparents are supportive. Depression/Shaken Baby/Safe Sleeping:? Sw educated MOB on signs and symptoms of baby blues and depression and anxiety to be on the lookout for. Sw educated MOB on shaken baby prevention and ABCs of safe sleep. MOB expressed understanding. ASSESSMENT:? MOB and baby admitted following labor and delivery. MOB open and talkative during psychosocial assessment. MOB aware of mental health symptoms to be mindful of throughout this period. MOB observed providing loving and tender care to baby. MARCELINO's older daughters presented to hospital room and were observed to be very excited to be with mom and . MARCELINO has everything that she needs for baby and natural supports in place. MOB was receptive to sw involvement and support. PLAN:? MOB and baby to be discharged when medically ready. ?No other services requested or indicated. Nigel Johnston, FINANCIAL REPORTING MANAGER, [employer]
--- NOTE | 2023-09-23 10:38 | NURSING ---
Follow up phone call made. Patient states she is doing well. States her bleeding is getting better, and not really having any discomfort anymore. Denies any issues with headaches, visual disturbances, flulike symptoms, or baby blues. States that Joshua is nursing every 2-3 hours and gained 2 ounces. Denies any further questions or concerns.
== END 2023-09-17 13:00 | disposition home or self-care (01) | DRG 805 ==
LOC: WPOUT 17:59 → WP 18:01
PROVIDERS: Admitting Provider Obstetrics & Gynecology; PCP Family Medicine; Referring Provider Obstetrics & Gynecology; Visit Provider Obstetrics & Gynecology
DX: O99.344 Other mental disorders complicating childbirth (principal); Z37.0 Single live birth; O60.14X0 Preterm labor third trimester with preterm delivery third trimester, not applicable or unspecified; F32.A Depression, unspecified; F41.9 Anxiety disorder, unspecified; K58.9 Irritable bowel syndrome, unspecified; E28.2 Polycystic ovarian syndrome; O99.214 Obesity complicating childbirth; O26.23 Pregnancy care for patient with recurrent pregnancy loss, third trimester; O99.02 Anemia complicating childbirth; Z80.41 Family history of malignant neoplasm of ovary; Z3A.36 36 weeks gestation of pregnancy; Z87.891 Personal history of nicotine dependence; O99.62 Diseases of the digestive system complicating childbirth; O99.284 Endocrine, nutritional and metabolic diseases complicating childbirth
CPT/HCPCS: 59025; 59050; 84112; 85025; 86780; 86850; 86900; 86901; 99221; J7120; A4216; G0378; J2405

== ENCOUNTER → 2024-01-30 | Outpatient (CLI) | payer OTHER, SELFPAY ==
[2024-02-05 15:09] LABS: HPV APTIMA, High Risk Negative (Negative)
== END | disposition home or self-care (01) ==
LOC: LABSPEC 15:43
PROVIDERS: PCP Family Medicine; Referring Provider Obstetrics & Gynecology; Visit Provider Obstetrics & Gynecology
DX: Z12.4 Encounter for screening for malignant neoplasm of cervix (principal)
CPT/HCPCS: 87624; 88175; G0145

== ENCOUNTER → 2025-02-25 | Outpatient (CLI) | payer OTHER, SELFPAY ==
--- NOTE | 2025-02-25 12:42 | US_ITS ---
PROCEDURE: PELVIC W/ TRANSVAGINAL 02/25/2025 REASON FOR EXAM: PELVIC PAIN TECHNIQUE: Procedure Code: [id number] Modality: US Procedure: PELVIC W/ TRANSVAGINAL COMPARISON: None available. FINDINGS: Uterus: The uterus measures 9.6 x 5.6 x 4.2 cm. Heterogenous appearance without evidence of discrete cyst, echogenic calculi, or mass. The endometrial stripe measures 6 mm and contains an intrauterine device. Multiple simple nabothian cysts visualized in the cervix. Right ovary: The right ovary is normal in size measuring 4 x 3 x 2.3 cm. No suspicious masses. Blood flow to the adnexa is normal with arterial and venous waveforms documented. Left ovary: The left ovary is normal in size measuring 2.7 x 2.6 x 2.6 cm. No suspicious masses. Blood flow to the adnexa is normal with arterial and venous waveforms documented. BLADDER: The bladder wall measures less than less than 3 mm. The ureteral jets were notseen. Prevoid bladder volume is 274 ml. No ascites. US/Pelvic w/ Transvaginal IMPRESSION: 1. No evidence of acute ovarian torsion. 2. Intrauterine device is in the expected location. 3. Heterogenous uterus without evidence of mass. Reading Location: [facility]
== END | disposition home or self-care (01) ==
LOC: US 12:39
PROVIDERS: PCP Family Medicine; Referring Provider Nurse Practitioner Women's Health; Visit Provider Nurse Practitioner Women's Health
DX: R10.20 Pelvic and perineal pain unspecified side (principal)
CPT/HCPCS: 76830; 76856